=== PATIENT | female | born 1955 ===

== ENCOUNTER 2022-04-26 07:30 | Day surgery (SDC) | payer OTHER ==
[~2022-04-26] VITALS: Ht 152.4 cm; Wt 53.1 kg
== END 2022-04-26 19:55 | disposition home or self-care (01) ==
LOC: CIR.AMB 07:30
PROVIDERS: ATTEND Specialist
DX: N94.89 Other specified conditions associated with female genital organs and menstrual cycle (principal); Z20.822 Contact with and (suspected) exposure to COVID-19; Z88.8 Allergy status to other drugs, medicaments and biological substances